=== PATIENT | female | born 1960 | race Caucasian/White ===

== ENCOUNTER 2024-01-28 21:09 | Emergency (ER) | payer MEDICARE, SELFPAY ==
[2024-01-28 21:13] VITALS: BP 138/81
[2024-01-28 22:29] VITALS: BP 110/80
--- NOTE | 2024-01-28 22:42 | ED.GENMED ---
History of Present Illness
General
Chief Complaint: Extremity Pain (non-traumatic)
Source: patient and spouse
Exam Limitations: none
Time Seen by Provider: 01/28/24 21:54
Nursing documentation reviewed up to this point in time: agreed with
Travel History
Have you had any contact with someone who has COVID-19?: No
Do you have any symptoms of coronavirus? Fever > 100 degrees, chills, cough, shortness of breath, sore throat, loss of taste or smell, muscle aches, or headache?: No
History of Present Illness
History of Present Illness:
63-year-old female with past medical history of hypertension, GERD, hypothyroidism, prior stroke presents to the emergency department with her for evaluation of left lower leg numbness. Patient reports that she was sitting in her armchair
this evening prior to arrival when she stood up she felt numbness in the left lower leg. She says that she stumbled and nearly fell but had no serious injuries. She says that this numbness has persisted since then and so she came to the emergency
to be assessed. Numbness is mainly on the dorsum of the foot and wraps laterally up the left lower leg. No significant numbness in the thigh. She has not had any weakness in the leg and has been able to ambulate. She denies any numbness or
weakness in the rest of her extremities. She denies any change in vision or speech. She denies any facial droop. She denies any back pain. Denies being on any blood thinners.
Past History
Past History
ED Past Medical History: Asthma and Other (TIA in the past etiology uncertain)
ED Past Surgical History: Orthopedic
Patient has exhibited threatening behavior?: No
Social History
Tobacco: Non-smoker
Drug: None
Personal:
Living: with family
Family History
Family History: Negative Diabetes, Hypertension, Early CAD, Asthma or Cancer
Review of Systems
Review of Systems
All Other Systems: ROS reviewed and negative except as documented in HPI and ROS
Respiratory: Denies trouble breathing
Cardiac: Denies chest pain
ABD/GI: Denies abdominal pain
: Denies flank pain
Musculoskeletal: Denies neck pain or back pain
Neurological: Reports numbness; Denies dizzy, headache or weakness
Phy Exam
Physical Exam
Physical Exam:
General: Awake, alert, oriented x3; no acute distress
Head: Normocephalic, atraumatic
Eyes: Conjunctiva normal, EOMI, pupils equal round and reactive to light bilaterally
Throat: Airway intact, handling secretions
Neck: Trachea midline, supple without meningismus
Lungs: Clear to auscultation bilaterally, no wheezing, rales, rhonchi
Heart: Regular rate and rhythm, no murmurs, gallops, or rubs
Abd: Soft, non distended, nontender
Neuro: Cranial nerves intact 2 through 12, speech fluent without dysarthria or aphasia, no limb ataxia, motor function is intact and symmetric 5/5 proximally and distally in the upper and lower extremities; she has localized diminished sensation in
the L5-S1 dermatome in her left lower extremity, sensory function is normal and the rest of her left lower extremity; she has no sensory dysfunction of the rest of her extremities
Skin: no rash
Extremities: No edema in extremities, equal pulses in all extremities�specifically she has a strong left DP pulse
Scores
Heart Failure Risk
Heart Failure Risk Score: Not Applicable
Heart Score for Chest Pain Patients
STEMI patient?: Not applicable
Withdrawal Assessment of Alcohol
Withdrawal Assessment Completed?: Not applicable
Course
Vital Signs
Initial and Last Documented VS:
Initial Vital Signs
Temp Pulse Resp BP Pulse Ox
36.8 C 69 16 138/81 97
01/28/24 21:13 01/28/24 21:13 01/28/24 21:13 01/28/24 21:13 01/28/24 21:13
Last Documented Vital Signs
Temp Pulse Resp BP Pulse Ox
36.8 C 74 18 110/80 95
01/28/24 21:13 01/28/24 22:29 01/28/24 22:29 01/28/24 22:29 01/28/24 22:29
MDM/Problems Addressed
Differential Diagnosis Includes:
Compressive neuropathy, lumbar radiculopathy, sciatica; history and exam are not consistent with central nervous system pathology such as stroke or spinal emergency
MDM/Problems Addressed:
63-year-old female presents for evaluation of left lower leg localized numbness that started after standing up after prolonged sitting in the chair. Her vital signs are normal. Her exam is as above�localized diminished sensation in L5-S1 dermatome
left lower extremity. No motor dysfunction or other neurologic deficits. Suspect that this was likely a compressive neuropathy from prolonged seating. She has no signs of vascular compromise. Her history and exam are not consistent with central
nervous system pathology such as stroke or spinal emergency. Watchful waiting likely appropriate�I did discuss the case with neurology who agreed watchful waiting, no clear indication for steroids. There is no indication for emergent testing at
this point in time I think she is stable for discharge and can follow-up with her primary doctor as an outpatient. I did speak with the patient about return precautions and all questions were answered.
Chronic conditions affecting care:
Obesity
*Pulse Oximetry
Patient hypoxic: no
*Critical Care Note
Total Time (30-74mins, 75-104mins- exclusive of procedures): Not Applicable
Data Reviewed
Source: patient and spouse
Patient Management
Discussion with other providers: [employer] (Discussed with neurology)
ED Attending Note
-
Portions of this chart may have been created with voice recognition software.� Occasional wrong word or��sound alike� substitutions may have occurred due to the inherent limitations of voice recognition software.
Discharge Plan
Departure
Patient Disposition: Home (Routine Discharge)
Date of Disposition: 01/28/24
Time of Disposition: 22:49
Patient with high blood pressure during this ER visit?: No
Discharge Problem:
Peripheral neuropathy
Instructions: Peripheral Neuropathy (DC)
Prescriptions:
No Action
amiloride-hydrochlorothiazide 1 EACH tablet
1 ea PO DAILY
citalopram 10 MG tablet
10 mg PO QPM
meloxicam 15 MG tablet
15 mg PO DAILY
fexofenadine [Erlinda] 180 MG tablet
180 mg PO PRN PRN (Reason: asthma symptoms)
diphenhydramine HCl [Allergy (diphenhydramine)] 25 MG capsule
25 mg PO PRN PRN (Reason: allergy)
aspirin 81 MG tablet,delayed release (DR/EC)
81 mg PO DAILY
acetaminophen [Tylenol Extra Strength] 500 MG tablet
1,000 mg PO PRN PRN (Reason: pain)
pantoprazole 40 MG tablet,delayed release (DR/EC)
40 mg PO BID
pseudoephedrine HCl [Sudogest] 60 MG tablet
120 mg PO BID
levothyroxine 25 MCG tablet
25 mcg PO DAILY
propranolol 40 MG tablet
40 mg PO DAILY
Potassium
10 meq PO DAILY
gabapentin 600 MG tablet
600 mg PO BID
Xyzal
tramadol 50 MG tablet
50 mg PO
fluticasone propionate 1 SPRAY spray,suspension
1 spray intranasal DAILY
fluticasone propionate 1 SPRAY spray,suspension
tetrahydrozoline [Visine] 30 ML drops
Buspirone HCl
BID
Vitamin D3:
mvi, adult no.4 with vit K [Infuvite Adult] 10 ML solution
calcium carbonate 500 MG tablet
500 mg PO
Culturelle
mecobalamin (vitamin B12) [B12 Active] 1,000 MCG tablet,chewable
Melatonin:
oxycodone-acetaminophen 5 MG/325 MG tablet
1 tab PO Q4HPRN PRN (Reason: moderate to severe pain) Qty: 15 0RF
ondansetron 4 MG tablet,disintegrating
4 mg PO TIDPRN PRN (Reason: nausea/vomiting) Qty: 10 0RF
Referrals:
Eugenia Duron MD [Family Provider] - Follow up in 5-7 days
Activity Restrictions/Additional Instructions:
Thank you for visiting the Emergency Department at [facility].
1. Please schedule a follow up appointment as directed. Call first thing tomorrow morning to make an appointment.
2. If indicated, please take your medications as instructed and indicated on discharge paperwork.
3. If any of your symptoms do not improve, or persist, or become more severe within 6-12 hours, please return to the emergency department for further care.
4. Please return to the emergency department if you develop a headache, neck pain/stiffness, fever greater than 100.4F, chest pain, shortness of breath, persistent nausea, vomiting, slurred speech, difficulty walking, numbness/tingling, weakness,
signs of infection or any other symptoms that are worrisome to you.
Please call [phone] if you have any questions.
Interventions
Interventions:
*Risk Screen - Suicide Last Done: 01/28/24 21:13
*General Assessment Last Done: 01/28/24 21:13
*Neglect/Abuse Screening Last Done: 01/28/24 21:13
ED- Fall Risk Assessment Last Done: 01/28/24 22:30
*ED COVID-19 Vaccine History Last Done: 01/28/24 22:30
ED-Skin Assessment Last Done: 01/28/24 22:18
ED-Peripheral Vascular Assessment Last Done: 01/28/24 22:18
ED-Musculoskeletal Assessment Last Done: 01/28/24 22:18
Discharge Date and Time
Print Language: OCCITAN
== END 2024-01-28 23:05 | disposition home or self-care (01) ==
LOC: EMR 21:09
PROVIDERS: EMERGENCY PHYSICIAN Emergency Medicine; FAMILY PHYSICIAN Family Medicine
DX: G62.9 Polyneuropathy, unspecified (principal); I10 Essential (primary) hypertension; K21.9 Gastro-esophageal reflux disease without esophagitis; E03.9 Hypothyroidism, unspecified
CPT/HCPCS: 99282

== ENCOUNTER → 2024-10-06 14:13 | Outpatient (REF) | payer MEDICARE, SELFPAY | LOC: HWRAD 14:13 | PROVIDERS: ATTENDING PHYSICIAN Family Medicine | DX: J34.89 Other specified disorders of nose and nasal sinuses (principal); R09.81 Nasal congestion | CPT/HCPCS: 70486 ==

== ENCOUNTER 2025-01-03 18:40 | Inpatient (IN) | payer MEDICARE, SELFPAY ==
[2024-12-20 11:25] LABS: Hematocrit 40.2 % (37.0-47.0); Hemoglobin 13.3 g/dL (12.0-16.0); Mean Corp Hgb Conc. 33.1 g/dL (33.0-37.0); Mean Corpuscular Hgb 28.9 pg (27.0-31.0); Mean Corpuscular Volume 87.2 fL (81.0-99.0); Mean Platelet Volume 11.3 fL (7.4-10.4); Platelet Count 301 10^3/uL (130-400); Red Blood Cell Count 4.61 10^6/uL (4.20-5.40); Red Cell Dist. Width 14.5 % (11.5-14.5); White Blood Cell Count 12.7 10^3/uL (4.8-10.8)
[2024-12-20 12:57] LABS: Blood Urea Nitrogen 14 mg/dl (7-17); Calcium 9.4 mg/dl (8.4-10.2); Carbon Dioxide 30 mmol/L (22-30); Chloride 101 mmol/L (98-107); Glucose 102 mg/dl (70-99); Potassium 3.7 mmol/L (3.5-5.1); Sodium 141 mmol/L (135-145); eGFR > 60.00
[2024-12-20 13:45] VITALS: BMI 44.6
[2025-01-03] VITALS (21 sets, daily range): BP systolic 96–132; BP diastolic 48–82; BMI 44.6; BMI 47.1
[2025-01-03] MEDS: NORMOSOL-R/PLASMALYTE-A 1000 IV (09:25)
[2025-01-03] MEDS: TYLENOL 1000 MG PO (09:31)
[2025-01-03] MEDS: EMEND 40 MG PO (09:31)
[2025-01-03] MEDS: DUONEB 3 ML INH ×2 (15:57→19:55)
[2025-01-03] MEDS: ANESTHETIC LOZENGE 1 LOZENGE PO (16:53)
--- NOTE | 2025-01-03 18:11 | HPS.HSE ---
Addendum entered and electronically signed by Danny Mora MD 01/03/25 21:05:
Chest x-ray shows mild left basilar atelectasis and or pneumonia. Suspect mild back or infectious/inflammatory pneumonitis. Cannot rule out component of underlying chronic incisional lung disease. Check COVID and influenza. Start
ceftriaxone/doxycycline.
Original Note:
Family Physician
-
Family Physician: Eugenia Duron
Chief Complaint
-
shortness of breath
History of Present Illness
64-year-old female past medical history of asthma, obstructive sleep apnea, chronic sinusitis, hypertension, GERD, hypothyroidism, prior CVA, essential tremor, migraines, essential tremors, lichen sclerosus, who underwent sinus surgery today for
chronic sinusitis since and had hypoxemia after surgery.
She was having cough and congestion and shortness of breath for the past 2 weeks. Her had similar symptoms and got better. Intermittent chills. Denies any chest pain. No vomiting or diarrhea.
She is a former smoker and vapes currently. Denies alcohol.
Medical History
Past Medical History
Past Medical History: Reports Other (asthma, obstructive sleep apnea, chronic sinusitis, hypertension, GERD, hypothyroidism, prior CVA, essential tremor, migraines, essential tremors, lichen sclerosus)
Past Surgical History: Reports None
Social History
Tobacco: Former Smoker
Alcohol: None
Drug: None
Family History
Family History: Not pertinent
Allergies / Home Medications
Allergies reflects when Allergies were last updated in [employer].
Home Medications with original date entered in [employer]
Allergy/Medication List:
Allergies
Allergy/AdvReac Type Severity Reaction Status Date / Time
azithromycin [From Zithromax] Allergy Shortness Verified 01/03/25 09:13
of Breath,
triggers
asthma
attack
codeine [Codeine] Allergy Rapid Verified 01/03/25 09:13
heart rate
guaifenesin [From Sitrex] Allergy extreme Verified 01/03/25 09:13
dizziness
phenylephrine HCl Allergy patient Verified 01/03/25 09:13
[From Sitrex] denies
Animals Allergy Itching,sne Uncoded 01/03/25 09:13
ezing,etc.
Grass, pollen, mold Allergy Watery Uncoded 01/03/25 09:13
eyes,
itching,
sneezing
Home Medications
citalopram 10 mg tablet 20 mg PO DAILY 11/03/11
meloxicam 15 mg tablet 15 mg PO DAILY 11/03/11
aspirin 81 mg tablet,delayed release 81 mg PO DAILY 04/07/13
pantoprazole 40 mg tablet,delayed release 40 mg PO DAILY 04/07/13
pseudoephedrine HCl 60 mg tablet (Sudogest) 120 mg PO BID 04/07/13
levothyroxine 25 mcg tablet 25 mcg PO DAILY 02/20/20
propranolol 40 mg tablet 40 mg PO BID 02/20/20
Culturelle 1 cap PO DAILY 02/22/20
fluticasone propionate 50 mcg/actuation nasal spray,suspension 1 spray intranasal PRN PRN allergies 02/22/20
gabapentin 600 mg tablet 600 mg PO BID 02/22/20
Pro-Air Inhaler 2 puff inhalation PRN PRN asthma 12/27/24
acetaminophen 325 mg tablet (Tylenol) 650 mg PO Q4H PRN discomfort 12/27/24
amiloride-hydrochlorothiazide 1 tab PO DAILY 12/27/24
levocetirizine 5 mg tablet (Xyzal) 2.5 mg PO QPM 12/27/24
melatonin 10 mg tablet 20 mg PO HS 12/27/24
mesalamine 1.2 gram tablet,delayed release 1.2 g PO DAILY 12/27/24
multivitamin 2 tab PO DAILY 12/27/24
potassium chloride 10 mEq capsule,extended release 10 meq PO DAILY 12/27/24
quetiapine 25 mg tablet (Seroquel) 25 mg PO HS 12/27/24
sumatriptan succinate 100 mg tablet (Imitrex) 100 mg PO PRN PRN migraines 12/27/24
Dennisvivek Quinmayi Leg Cramp 2 tab PO QHS 01/03/25
diphenhydramine HCl 25 mg capsule (Benadryl) 25 mg PO HS PRN allergies 01/03/25
Review of Systems
-
History Source: Patient
A 12 point ROS was completed and negative except as noted: Yes
Constitutional: Reports No Symptoms
EENT: Reports No Symptoms
Respiratory: Reports No Symptoms
Cardiac: Reports No Symptoms
Abdomen/GI: Reports No Symptoms
: Reports No Symptoms
Musculoskeletal: Reports No Symptoms
Skin: Reports No Symptoms
Neurological: Reports No Symptoms
Endocrine: Reports No Symptoms
Hematologic/Lymphatic: Reports No Symptoms
Psych: Reports No Symptoms
Physical Exam
Vital Signs
Vital Signs
Temp Pulse Resp BP Pulse Ox
99.1 F 74 15 120/64 93
01/03/25 17:15 01/03/25 18:00 01/03/25 18:00 01/03/25 18:00 01/03/25 18:00
Physical Exam
General: Well Developed, Well Nourished and No Apparent Distress
HEENT: NormoCephalic, Moist mucous membranes and Atraumatic
Respiratory: Clear
Cardiac: S1/S2 and Regular Rhythm; No Murmur or Rub
GI: Soft, Non Tender, Non Distended and Normal Bowel Sounds; No Organomegaly
Rectal: Deferred by Provider
Musculoskeletal: No Clubbing, No Cyanosis and No Edema
Skin: No Rash
Neuro: Nonfocal/grossly intact
Laboratory Results
-
12/20/24 09:34
12/20/24 09:34
Data Reviewed
-
Lab Data: Labs Reviewed by me
Old Records: Reviewed
Impression/Plan
-
IMPRESSION:
PLAN:
# Acute viral URI/asthma exacerbation with hypoxemia postop
- Check chest x-ray
- DuoNebs every 6 hours
- Received 10 of dexamethasone, continue dexamethasone 4 mg every 12
- Continue face tent for oxygenation
Chronic sinusitis
- Status post surgery today
Obstructive sleep apnea
Essential hypertension
- Continue amiloride, hydrochlorothiazide, propranolol
GERD
- Continue Protonix
Hypothyroidism
- Continue levothyroxine
Prior CVA
- Continue aspirin, statin
Essential tremor
- Continue gabapentin
Migraines
Lichen sclerosus
Anxiety/depression
- Continue citalopram, Seroquel
Possible IBD?
- Was not able to confirm why on mesalamine
Vaping history
Full code
DVT prophylaxis�heparin
Regular diet
--- NOTE | 2025-01-03 18:46 | PTCARENOTE ---
pt received from PACU. AOx3 drowsy, NSR. septal packing, 6L tented face mask with humidification, faint crackles in b/l bases. CXR pending. abd round obese pt voided in pacu. No edema +PP b/l. CB in reach.
[2025-01-03] MEDS: HEPARIN 5000 UNITS SC (20:21)
[2025-01-03] MEDS: INDERAL 40 MG PO (20:22)
[2025-01-03] MEDS: NEURONTIN 600 MG PO (20:22)
[2025-01-03] MEDS: TYLENOL 650 MG PO (21:40)
[2025-01-03] MEDS: VIBRAMYCIN 100 MG PO (21:40)
[2025-01-03] MEDS: SEROQUEL 25 MG PO (21:40)
[2025-01-03] MEDS: STERILE WATER FOR INJECTION 10 ML IV (21:41)
[2025-01-03] MEDS: MELATONIN 20 MG PO (21:41)
[2025-01-03] MEDS: ROCEPHIN 1000 MG IV (21:41)
[2025-01-03 22:24] LABS: COVID-19 Antigen Negative (Negative)
--- NOTE | 2025-01-04 00:55 | PTCARENOTE ---
Pt noted to be afib on the tele monitor. Going in and out of SR and afib/irregular HR. EKG shows NSR. BP 112/70 HR 79. CLASSIFICATION COUNSELOR Hephziba notified. Will continue to monitor.
[2025-01-04] MEDS: DECADRON 4 MG IV ×2 (01:17→15:53)
[2025-01-04 03:45] VITALS: BP 119/62
--- NOTE | 2025-01-04 03:51 | DOWNTIME ---
There was a [employer] Analysis Consultant Downtime on 01/04/2025 from 0200 to 01/05/2024 at 0318 . Downtime documentation of patient's care, including medication administrations, has been reconciled in the electronic record per guidelines. Refer to the
patient's paper chart under the miscellaneous tab to see printed paper medication records and downtime forms.
[2025-01-04] MEDS: SYNTHROID 25 MCG PO (05:56)
[2025-01-04] MEDS: TYLENOL 650 MG PO ×2 (06:12→12:15)
[2025-01-04] MEDS: DUONEB 3 ML INH ×2 (07:29→11:32)
--- NOTE | 2025-01-04 08:42 | W.PN.ENT ---
Today's Communication
-
Stable from ENT perspective. Cleared for discharge once medically stable.
Impression / Plan
-
64-year-old female with history of chronic sinusitis, s/p septoplasty and bilateral FESS yesterday.
- Patient with hypoxia postoperatively.
- May have some mild pneumonia based on chest x-ray, versus atelectasis.
- Patient encouraged to take deep breaths, use spirometer.
- Patient stable from ENT perspective.
- Continue antibiotics and steroids as per medicine service.
- Okay to discharge home from ENT perspective once medically stable.
- Patient has Medrol Dosepak and prescription for doxycycline at home to start upon discharge.
- Okay to change antibiotics if needed.
- Patient has follow-up on Wednesday in the office to remove splints and clean out nose.
Subjective Data
-
Patient kept overnight for hypoxia.
Doing well this morning.
Has some mild headache but denies any other complaints.
Patient denies any shortness of breath.
Denies chest pain.
No significant coughing or phlegm.
Nose with minimal bloody drainage but otherwise no issues.
Patient denies fevers or chills.
Objective Data
-
Vital Signs
Temp Pulse Resp BP Pulse Ox
98.1 F 72 16 119/62 92
01/04/25 03:45 01/04/25 07:30 01/04/25 07:30 01/04/25 03:45 01/04/25 03:45
Intake & Output
01/03/25 01/04/25 01/05/25
06:59 06:59 06:59
Intake:
Oral fluids 480 / 480
IV fluids (Total) 300 / 300
Normosol 300 / 300
Output:
Urine, Voided 200 / 200
Other:
How many times incontinent 1
MODERATE amount urine
How many times incontinent 1
SATURATED amount urine
Calcium 9.4 mg/dl (8.4-10.2) 12/20/24 09:34
Physical Exam
-
Awake, alert, oriented, in no acute distress.
Oxygen saturations in the low 90s overnight with face tent.
Otherwise afebrile, vital signs stable.
Nasal cavity with splints in place bilaterally.
Mild dried blood in nares anteriorly bilaterally.
Oral cavity/oropharynx clear.
Neck soft and supple.
Data Reviewed
-
Radiology Results: Report Reviewed and Image Reviewed
[2025-01-04 08:48] VITALS: BP 118/68
[2025-01-04 09:07] LABS: % Basophils 0.2 % (0-2); % Immature Granulocytes 0.3 % (0-0.5); % Lymphocytes 14.9 % (20.5-51.1); % Monocytes 3.8 % (1.7-9.3); % Neutrophils 80.8 % (42.2-75.2); Absolute Lymphocytes 1.5 10^3/uL (1.2-3.4); Absolute Monocytes 0.4 10^3/uL (0.1-0.6); Hematocrit 36.2 % (37.0-47.0); Mean Corp Hgb Conc. 33.1 g/dL (33.0-37.0); Mean Corpuscular Hgb 29.3 pg (27.0-31.0); Mean Corpuscular Volume 88.5 fL (81.0-99.0); Mean Platelet Volume 10.8 fL (7.4-10.4); Nucleated Red Blood Cells % 0 %; Platelet Count 284 10^3/uL (130-400); Red Blood Cell Count 4.09 10^6/uL (4.20-5.40); Red Cell Dist. Width 14.5 % (11.5-14.5); White Blood Cell Count 9.8 10^3/uL (4.8-10.8)
[2025-01-04] MEDS: MIDAMOR 2.5 MG PO (09:07)
[2025-01-04] MEDS: VIBRAMYCIN 100 MG PO (09:08)
[2025-01-04] MEDS: NEURONTIN 600 MG PO (09:09)
[2025-01-04] MEDS: INDERAL 40 MG PO (09:09)
[2025-01-04] MEDS: ORETIC 25 MG PO (09:09)
[2025-01-04] MEDS: PROTONIX 40 MG PO (09:09)
[2025-01-04] MEDS: KCL 10 MEQ PO (09:09)
[2025-01-04] MEDS: ASPIR LOW (ENTERIC COATED) 81 MG PO (09:09)
[2025-01-04] MEDS: MOBIC 15 MG PO (09:10)
[2025-01-04] MEDS: HEPARIN 5000 UNITS SC (09:10)
[2025-01-04] MEDS: THERAGRAN 2 TABLET PO (09:10)
[2025-01-04] MEDS: CELEXA 20 MG PO (09:10)
[2025-01-04 09:39] LABS: ALT (SGPT) < 10 U/L (0-35); AST (SGOT) 17 U/L (14-36); Albumin 3.6 g/dl (3.5-5.0); Alkaline Phosphatase 101 U/L (38-126); Blood Urea Nitrogen 13 mg/dl (7-17); Calcium 8.6 mg/dl (8.4-10.2); Carbon Dioxide 28 mmol/L (22-30); Chloride 102 mmol/L (98-107); Estimated Creatinine Clearance > 125 ml/min; Glucose 154 mg/dl (70-99); Sodium 140 mmol/L (135-145); Total Bilirubin 0.4 mg/dl (0.2-1.3); Total Protein 6.4 g/dl (6.3-8.2); eGFR > 60.00
--- NOTE | 2025-01-04 09:40 | CM ---
Cm met with patient in room. Patient confirmed demographics. Patient lives independently with spouse. Patient denied history of VN or SNF. Albertn uses a cane and walker for ambulation. Patient is active with her PCP. Patient uses [facility] for medication
services,.
PLAN: Home no needs.
[2025-01-04 11:20] VITALS: BP 107/89
--- NOTE | 2025-01-04 11:25 | W.PN.HOSP.TC ---
Today's Communication/Plan
-
Assessment / Plan
Assessment / Plan
General: No Apparent Distress, Comfortable and Conversant
HEENT: Nasal bandages in place status post septoplasty, supplemental oxygen via face tent
Respiratory: Clear and Non Labored Respirations, no wheezing
Cardiac: S1/S2 and Regular Rhythm; No Rub or Gallop
GI: Soft, Non Tender, Non Distended and Normal Bowel Sounds
Musculoskeletal: No Edema, no deformity
Skin: Warm and dry
: NO Santamaria
Neuro: Awake, Alert, Nonfocal/grossly intact
Psych: Calm and Intact Judgment/Insight
Ms. Black is a 64-year-old female with a medical history of asthma, MADAY, chronic sinusitis, hypertension, hypothyroidism, migraines, essential tremor, lichen sclerosus, CVA, and GERD who presented with hypoxemia following nasal septoplasty.
Chest imaging shows mild left basilar pneumonia with mild background infectious/inflammatory pneumonitis. She has been started on supplemental oxygen via face tent due to inability to use nasal cannula following septoplasty. She has been started
on antibiotics and steroids and admitted for further evaluation and management.
Community-acquired pneumonia:
- With associated hypoxia, stable on supplemental oxygen via face tent
- Respiratory panel negative for influenza and COVID
- Chest imaging shows mild left basilar pneumonia with mild background infectious/inflammatory pneumonitis
- Continue antibiotics with ceftriaxone and doxycycline
- Continue steroids
- Appreciate input from ENT following septoplasty, patient is stable from an ENT standpoint
- Encourage abstinence from vaping
Chronic sinusitis:
- Status post nasal septoplasty prior to admission on 01/03/2025
- Stable from an ENT standpoint
Essential hypertension:
- Continue home amiloride, HCTZ, and propranolol
Cerebrovascular disease:
- Prior stroke, currently stable
- Continue aspirin and statin
Essential tremor:
- Continue gabapentin
Anxiety and depression:
- Continue home citalopram and quetiapine
CODE STATUS: Full code
Anticipated Discharge: - 48 hours
Subjective/Interval History
-
Date of Service: January 04, 2025
Patient was seen and examined at bedside this morning. Reports feeling uncomfortable breathing through her mouth as she is usually a nose breather. However she is status post septoplasty with nasal bandages in place. She is receiving supplemental
oxygen via face tent. She was also on antibiotic for possible pneumonia.
Objective Data
-
Labs:
Laboratory Results
01/04/25
07:53
WBC 9.8
Hgb 12.0
Hct 36.2 L
Plt Count 284
Sodium 140
Potassium 4.0
Chloride 102
Carbon Dioxide 28
BUN 13
Creatinine 0.6
Glucose 154 H
Calcium 8.6
Total Bilirubin 0.4
AST 17
ALT < 10
Alkaline Phosphatase 101
Vital Signs:
Vital Signs
Temp Pulse Resp BP Pulse Ox
97.8 F 70 16 118/68 90
01/04/25 08:48 01/04/25 08:48 01/04/25 08:48 01/04/25 08:48 01/04/25 08:48
I&O
01/03/25 01/04/25 01/05/25
06:59 06:59 06:59
Intake Total 780 / 780
Output Total 200 / 200
Balance 580 / 580
Review of Systems
-
History Source: Patient
All other systems: Reviewed and negative
EENT: Reports Other (Nasal discomfort status post septoplasty)
Respiratory: Reports Trouble Breathing
Physical Exam
-
General: No Apparent Distress
--- NOTE | 2025-01-04 13:48 | PTCARENOTE ---
Patient unable to breath through nose due to surgery/packing. Patient instructed on taking deep breaths through mouth and coughing. At 1100 Patient had the tented mask on at 5 l. O2 sat was 93%. Decreased oxygen to 3 L and remained 93%. Removed the
mask and remained 89-90%. Did some more coughing and deep breathing. Ambulated to the bathroom. When returning from the bathroom was 88% but recovered to 94% on RA quickly. Patient sitting up in the chair and was maintaining 92-94% on RA. Patient
does drop down to 88% but recovers quickly back to 94% after taking deep breaths. Dr. Prasad made aware.
--- NOTE | 2025-01-04 14:22 | W.DCSUMMARY ---
Discharge Summary
Discharge Data
Date of Admission: 01/03/25
Date of Discharge: 01/04/25
-
Pending Results: No
Hospital Course
Ms. Black is a 64-year-old female with a medical history of asthma, MADAY, chronic sinusitis, hypertension, hypothyroidism, migraines, essential tremor, lichen sclerosus, CVA, and GERD who presented with hypoxemia following nasal septoplasty.
Chest imaging shows mild left basilar pneumonia with mild background infectious/inflammatory pneumonitis. She has been started on supplemental oxygen via face tent due to inability to use nasal cannula following septoplasty. She was started on
antibiotics and steroids and admitted for further evaluation and management.
Her pulse ox remained stable and she is comfortable at rest although her oxygen drops to the low 90s with exertion. She recovers quickly with rest and deep breathing. Her respiratory panel was negative for influenza and COVID. She remained
afebrile and hemodynamically stable. She was evaluated by ENT while inpatient and felt to be stable for discharge from an ENT standpoint. She will be continued on a course of oral antibiotics and steroids. She was encouraged to abstain from
vaping. She should continue to take her other home medications as prescribed. She will need close follow-up with ENT and with her primary care physician after hospital discharge. She was medically stable at time of hospital discharge.
General: No Apparent Distress, Comfortable and Conversant
HEENT: Nasal bandages in place status post septoplasty, breathing comfortably on room air
Respiratory: Clear and Non Labored Respirations, no wheezing
Cardiac: S1/S2 and Regular Rhythm; No Rub or Gallop
GI: Soft, Non Tender, Non Distended and Normal Bowel Sounds
Musculoskeletal: No Edema, no deformity
Skin: Warm and dry
: NO Santamaria
Neuro: Awake, Alert, Nonfocal/grossly intact
Psych: Calm and Intact Judgment/Insight
Discharge Plan
-
Patient Disposition: Home (Routine Discharge)
Discharge Diagnosis/Procedures: Community-acquired pneumonia
Diet: No restrictions
Activity: As tolerated
Activity Restrictions/Additional Instructions:
Ms. Black is a 64-year-old female with a medical history of asthma, MADAY, chronic sinusitis, hypertension, hypothyroidism, migraines, essential tremor, lichen sclerosus, CVA, and GERD who presented with hypoxemia following nasal septoplasty.
Chest imaging shows mild left basilar pneumonia with mild background infectious/inflammatory pneumonitis. She has been started on supplemental oxygen via face tent due to inability to use nasal cannula following septoplasty. She was started on
antibiotics and steroids and admitted for further evaluation and management.
Her pulse ox remained stable and she is comfortable at rest although her oxygen drops to the low 90s with exertion. She recovers quickly with rest and deep breathing. Her respiratory panel was negative for influenza and COVID. She remained
afebrile and hemodynamically stable. She was evaluated by ENT while inpatient and felt to be stable for discharge from an ENT standpoint. She will be continued on a course of oral antibiotics and steroids. She was encouraged to abstain from
vaping. She should continue to take her other home medications as prescribed. She will need close follow-up with ENT and with her primary care physician after hospital discharge. She was medically stable at time of hospital discharge.
Referrals:
Eugenia Duron MD [Family Provider] -
Nader Hagen MD [Active] -
Prescriptions:
New
doxycycline hyclate 100 mg Capsule
100 mg PO Q12 5 Days Qty: 10 0RF
methylprednisolone [Medrol (Reed)] 4 mg tablets,dose pack
See Rx Instructions .ROUTE .COMPLEX Qty: 21 0RF
Rx Instructions:
for 6 days
Continued
citalopram 10 MG tablet
20 mg PO DAILY
meloxicam 15 MG tablet
15 mg PO DAILY
aspirin 81 MG tablet,delayed release (DR/EC)
81 mg PO DAILY
pantoprazole 40 MG tablet,delayed release (DR/EC)
40 mg PO DAILY
levothyroxine 25 MCG tablet
25 mcg PO DAILY
propranolol 40 MG tablet
40 mg PO BID
gabapentin 600 MG tablet
600 mg PO BID
Culturelle
1 cap PO DAILY
melatonin 10 mg Tablet
20 mg PO HS
potassium chloride 10 mEq Capsule, Extended Release
10 meq PO DAILY
multivitamin Tablet
2 tab PO DAILY
amiloride-hydrochlorothiazide
1 tab PO DAILY
Rx Instructions:
2.5/25mg
quetiapine [Seroquel] 25 mg Tablet
25 mg PO HS
acetaminophen [Tylenol] 325 mg Tablet
650 mg PO Q4H PRN (Reason: discomfort)
sumatriptan succinate [Imitrex] 100 mg Tablet
100 mg PO PRN PRN (Reason: migraines)
Pro-Air Inhaler
2 puff inhalation PRN PRN (Reason: asthma)
levocetirizine [Xyzal] 5 mg Tablet
2.5 mg PO QPM
mesalamine 1.2 gram Tablet,Delayed Release (Dr/Ec)
1.2 g PO DAILY
diphenhydramine HCl [Benadryl] 25 mg Capsule
25 mg PO HS PRN (Reason: allergies)
[place] Quinine Leg Cramp
2 tab PO QHS
Held
pseudoephedrine HCl [Sudogest] 60 MG tablet
120 mg PO BID
Hold Instructions: Hold until okayed by ENT
fluticasone propionate 1 SPRAY spray,suspension
1 spray intranasal PRN PRN (Reason: allergies)
Hold Instructions: Hold until okayed by ENT
Discharge Orders:
Discharge Patient (As Directed); Ordered 01/04/25
Ordered By: Jamal Prasad
Discharge Date and Time
Print Language: [place]
[2025-01-04 15:20] VITALS: BP 138/72
[2025-01-05 05:47] LABS: Hepatitis C Antibody Negative (Negative)
== END 2025-01-04 16:30 | disposition home or self-care (01) | DRG 982 ==
LOC: 2 SOUTH 18:40
PROVIDERS: Hospitalist; Otolaryngology; ADMITTING PHYSICIAN Internal Medicine; FAMILY PHYSICIAN Family Medicine
PROC: 09BV8ZZ Excision of Left Ethmoid Sinus, Via Natural or Artificial Opening Endoscopic (ICD-10-PCS; 2025-01-03)
PROC: 099Q8ZZ Drainage of Right Maxillary Sinus, Via Natural or Artificial Opening Endoscopic (ICD-10-PCS; 2025-01-03)
PROC: 09SM0ZZ Reposition Nasal Septum, Open Approach (ICD-10-PCS; 2025-01-03)
PROC: 099R8ZZ Drainage of Left Maxillary Sinus, Via Natural or Artificial Opening Endoscopic (ICD-10-PCS; 2025-01-03)
PROC: 09BU8ZZ Excision of Right Ethmoid Sinus, Via Natural or Artificial Opening Endoscopic (ICD-10-PCS; 2025-01-03)
PROC: 09BT8ZZ Excision of Left Frontal Sinus, Via Natural or Artificial Opening Endoscopic (ICD-10-PCS; 2025-01-03)
DX: J18.9 Pneumonia, unspecified organism (principal); J45.901 Unspecified asthma with (acute) exacerbation; J98.11 Atelectasis; J34.2 Deviated nasal septum; J32.9 Chronic sinusitis, unspecified; G43.909 Migraine, unspecified, not intractable, without status migrainosus; E03.9 Hypothyroidism, unspecified; G47.33 Obstructive sleep apnea (adult) (pediatric); K21.9 Gastro-esophageal reflux disease without esophagitis; Z86.73 Personal history of transient ischemic attack (TIA), and cerebral infarction without residual deficits; G25.0 Essential tremor; I10 Essential (primary) hypertension; L90.0 Lichen sclerosus et atrophicus; F41.9 Anxiety disorder, unspecified; F32.A Depression, unspecified; J98.4 Other disorders of lung; R09.02 Hypoxemia; Z79.82 Long term (current) use of aspirin; Z79.890 Hormone replacement therapy; Z79.899 Other long term (current) drug therapy; Z87.891 Personal history of nicotine dependence; Z11.52 Encounter for screening for COVID-19
CPT/HCPCS: 88304; 88311; 36415; 71045; 80048; 80053; 85025; 85027; 86803; 87070; 87075; 87147; 87186; 87205; 87502; 87811; 93005; 94640

== ENCOUNTER → 2025-05-24 09:55 | Outpatient (REF) | payer MEDICARE, SELFPAY | LOC: CLAB 09:55 | PROVIDERS: ATTENDING PHYSICIAN Otolaryngology | DX: J32.0 Chronic maxillary sinusitis (principal) | CPT/HCPCS: 87070; 87147; 87186; 87205 ==

== ENCOUNTER 2025-07-16 06:25 | Day surgery (SDC) | payer MEDICARE, SELFPAY | END 2025-07-16 13:40 | disposition home or self-care (01) | LOC: GI 06:25 | PROVIDERS: ATTENDING PHYSICIAN Internal Medicine | DX: R13.10 Dysphagia, unspecified (principal); K44.9 Diaphragmatic hernia without obstruction or gangrene; K31.89 Other diseases of stomach and duodenum; K29.50 Unspecified chronic gastritis without bleeding; K20.80 Other esophagitis without bleeding | CPT/HCPCS: 43239; 88305; 88342 ==

== ENCOUNTER → 2025-07-18 11:43 | Outpatient (REF) | payer MEDICARE, SELFPAY | LOC: RAD 11:43 | DX: F17.210 Nicotine dependence, cigarettes, uncomplicated (principal) | CPT/HCPCS: 71271 ==

== ENCOUNTER → 2025-07-24 09:05 | Outpatient (REF) | payer MEDICARE, SELFPAY | LOC: WDC 09:05 | PROVIDERS: ATTENDING PHYSICIAN Physician Assistant | DX: N64.52 Nipple discharge (principal); N64.4 Mastodynia; N63.21 Unspecified lump in the left breast, upper outer quadrant | CPT/HCPCS: 76642; 77062; 77066 ==